=== PATIENT | female | born 1975 | race Caucasian/White ===

== ENCOUNTER 2023-11-05 12:00 | Outpatient (CLI) | payer MEDICARE, OTHER ==
[~2023-11-05 12:00] MED LIST: METF-1211 PO; NYST30OI6 TP; OLAN10TA26 PO; SERT100T PO; TRI115O TP
[2023-11-05] MEDS: RisperiDONE 1 MG TABLET PO SCH (21:27)
[2023-11-05] MEDS: SOLIFENACIN SUCCINATE 5 MG TABLET PO SCH (21:27)
[2023-11-05] MEDS: MetFORMIN HCL 500 MG TABLET PO SCH (21:27)
[2023-11-05] MEDS: ROSUVASTATIN CALCIUM 20 MG TABLET PO SCH (21:28)
[2023-11-05] MEDS: BENZOCAINE/MENTHOL LOZENGE PO PRN (22:13)
[2023-11-06] MEDS: LEVOTHYROXINE SODIUM 100 MCG TABLET PO SCH (06:41)
[2023-11-06] MEDS ORDERED: FERROUS SULFATE 325 MG EC TABLET PO SCH ×2 (07:00→10:30)
[2023-11-06 07:51] VITALS: BP 107/78; PULSE 82; RESP 18; TEMP 98.3; O2SAT 97
[2023-11-06] MEDS: SERTRALINE HCL 50 MG TABLET PO SCH (08:00)
[2023-11-06] MEDS: SitaGLIPtin PHOSPHATE 100 MG TABLET PO SCH (09:00)
[2023-11-06] MEDS: FERROUS SULFATE 325 MG EC TABLET PO SCH (10:12)
== END 2023-11-06 14:12 | disposition home or self-care (01) ==
LOC: CSU 12:00 → EDSTATUS 12-06 15:28
PROVIDERS: ATTEND Nurse Practitioner Acute Care
DX: F43.23 Adjustment disorder with mixed anxiety and depressed mood (principal); F33.9 Major depressive disorder, recurrent, unspecified; F51.02 Adjustment insomnia; R45.1 Restlessness and agitation; Z63.9 Problem related to primary support group, unspecified
CPT/HCPCS: 90839; 90840; Z7610